=== PATIENT | male | born 1945 | race Caucasian/White ===

== ENCOUNTER 2018-06-23 12:49 | Emergency (ER) | payer MEDICARE ==
[~2018-06-23] VITALS: Ht 162.6 cm; Wt 73.6 kg
[2018-06-23] MEDS ORDERED: BENZ-16 PO (13:38)
[2018-06-23] MEDS ORDERED: benzonatate 100mg capsule PO ONE (13:40)
[2018-06-23 13:57] VITALS: BP 135/79
== END 2018-06-23 13:58 | disposition home or self-care (01) ==
LOC: ER 12:51
DX: J06.9 Acute upper respiratory infection, unspecified (principal); I10 Essential (primary) hypertension; Z88.0 Allergy status to penicillin; Z79.899 Other long term (current) drug therapy
CPT/HCPCS: 99283

== ENCOUNTER 2019-07-18 13:36 | Inpatient (IN) | payer MEDICARE, OTHER ==
[~2019-07-18] VITALS: Ht 162.6 cm; Wt 73.0 kg
[2019-07-18] MEDS ORDERED: aspirin 81mg tab.chew PO ONE (13:40)
[2019-07-18 13:59] LABS: BASOPHILS % (AUTO) 0.3 % (0-1); EOSINOPHILS # (AUTO) 0.1 X10'3 (0-0.9); EOSINOPHILS % (AUTO) 0.5 % (0-6); HEMATOCRIT 46.7 % (42.0-52.0); HEMOGLOBIN 15.7 g/dl (14.0-17.9); LYMPHOCYTES # (AUTO) 1.8 X10'3 (1.1-4.8); MEAN CORPUSCULAR HEMOGLOBIN 34.1 PG (27.0-31.0); MEAN CORPUSCULAR HGB CONC 33.5 g/dL (33.0-36.5); MEAN CORPUSCULAR VOLUME 101.7 FL (78-98); MEAN PLATELET VOLUME 9.2 FL (7.4-10.4); MONOCYTES % (AUTO) 8.1 % (2-12); NEUTROPHILS # (AUTO) 9.7 X10'3 (1.8-7.7); NEUTROPHILS % (AUTO) 77.1 % (42-75); PLATELET COUNT 142 X10'3 (140-440); RED BLOOD COUNT 4.59 X10'6 (4.70-6.10); WHITE BLOOD COUNT 12.6 X10'3 (4.5-11.0)
[2019-07-18 14:13] LABS: ALANINE AMINOTRANSFERASE 39 U/L (12-78); ALBUMIN 3.9 G/DL (3.4-5.0); ALBUMIN/GLOBULIN RATIO 0.9 (1.1-1.5); ALKALINE PHOSPHATASE 74 IU/L (46-116); ANION GAP 6 (8-16); ASPARTATE AMINO TRANSFERASE 40 U/L (10-37); BILIRUBIN,TOTAL 0.6 MG/DL (0.1-1.0); BLOOD UREA NITROGEN 17 MG/DL (7-18); BUN/CREATININE RATIO 9.3 (5.4-32.0); CALCIUM 9.2 MG/DL (8.5-10.1); CHLORIDE 106 MMOL/L (99-107); CREATININE 1.82 MG/DL (0.60-1.10); GLUCOSE 199 MG/DL (70-104); POTASSIUM 4.6 MMOL/L (3.5-5.1); SODIUM 139 MMOL/L (135-145); TOTAL CARBON DIOXIDE 27.1 MMOL/L (24-32); TOTAL PROTEIN 8.3 G/DL (6.4-8.2); eGFR 37 ML/MIN
[2019-07-18 14:19] LABS: MAGNESIUM 2.5 MG/DL (1.5-2.4)
[2019-07-18] MEDS ORDERED: normal saline 1000ML IV soln IVB ONE (14:35)
[2019-07-18] MEDS ORDERED: meclizine 12.5mg tablet PO ONE (15:00)
[2019-07-18] MEDS ORDERED: acetaminophen 325mg tablet PO ONE (15:35)
[2019-07-18] MEDS ORDERED: docusate sod 100mg capsule PO PRN (17:50)
[2019-07-18] MEDS ORDERED: ondansetron/PF 4mg/2ml inj IV PRN (17:50)
[2019-07-18] MEDS ORDERED: potassium Cl 20 mEq SR tablet PO PRN ×2 (17:50)
[2019-07-18] MEDS ORDERED: acetaminophen 325mg tablet PO PRN (17:50)
[2019-07-18] MEDS ORDERED: magnesium 4gm in 100ml NS 100 ML IV PRN (17:50)
[2019-07-18] MEDS ORDERED: mag hydrox/Alum hydrox/simeth 30ml oral suspension PO PRN (17:50)
[2019-07-18] MEDS ORDERED: potassium CL 10mEq/100ml bag 100 ML IV PRN ×2 (17:50)
[2019-07-18] MEDS ORDERED: magnesium Cl slow-release 64mg tablet PO PRN (17:50)
[2019-07-18] MEDS ORDERED: magnesium 2GM in 50ml NS 50 ML IV PRN (17:50)
[2019-07-18] MEDS ORDERED: ATOR10TA70 PO (18:06)
[2019-07-18] MEDS ORDERED: ASPI-611 PO (18:14)
[2019-07-18] MEDS ORDERED: LIDOcaine 5% patch TP ONE (19:20)
[2019-07-18] MEDS ORDERED: LIDOcaine 5% patch TP SCH (19:20)
[2019-07-18] MEDS ORDERED: HYDROcodone/acetaminophen 5mg/325mg tablet PO PRN (19:20)
[2019-07-18] MEDS ORDERED: insulin Lispro (HumaLOG) vial - multi-dose SQ SCH (19:30)
[2019-07-18] MEDS ORDERED: dextrose ORAL solution 15 GM/59 ML bottle PO PRN ×2 (19:30)
[2019-07-18] MEDS ORDERED: dextrose 50%-water 50ml dispensing syringe IV PRN ×2 (19:30)
[2019-07-18] MEDS ORDERED: glucagon, human recombinant 1mg kit SUBCUT PRN (19:30)
[2019-07-18] MEDS ORDERED: MESSAGE TO PHARMACY PO ONE (19:30)
[2019-07-18] MEDS: normal saline 1000ml 1,000 ML IV SCH (19:48)
[2019-07-18] MEDS: K and/or MAG REPLACEMENT MC SCH (20:00)
[2019-07-18] MEDS ORDERED: insulin glargine (Lantus) pen - multi-dose SQ SCH (21:00)
[2019-07-18] MEDS: heparin, porcine 5000 units/ml vial SQ SCH (21:22)
[2019-07-19] VITALS: BP 193/88
[2019-07-19 04:52] LABS: HEMATOCRIT 44.3 % (42.0-52.0); HEMOGLOBIN 14.8 g/dl (14.0-17.9); MEAN CORPUSCULAR HEMOGLOBIN 33.4 PG (27.0-31.0); MEAN CORPUSCULAR HGB CONC 33.3 g/dL (33.0-36.5); MEAN CORPUSCULAR VOLUME 100.2 FL (78-98); MEAN PLATELET VOLUME 9.2 FL (7.4-10.4); PLATELET COUNT 135 X10'3 (140-440); RED BLOOD COUNT 4.42 X10'6 (4.70-6.10); RED CELL DISTRIBUTION WIDTH 13.1 % (11.5-14.5); WHITE BLOOD COUNT 9.1 X10'3 (4.5-11.0)
[2019-07-19 05:03] LABS: ALANINE AMINOTRANSFERASE 32 U/L (12-78); ALBUMIN 3.4 G/DL (3.4-5.0); ALBUMIN/GLOBULIN RATIO 0.9 (1.1-1.5); ALKALINE PHOSPHATASE 60 IU/L (46-116); ANION GAP 8 (8-16); ASPARTATE AMINO TRANSFERASE 35 U/L (10-37); BILIRUBIN,TOTAL 0.7 MG/DL (0.1-1.0); BLOOD UREA NITROGEN 16 MG/DL (7-18); BUN/CREATININE RATIO 12.5 (5.4-32.0); CALCIUM 8.6 MG/DL (8.5-10.1); CHLORIDE 108 MMOL/L (99-107); CREATININE 1.28 MG/DL (0.60-1.10); GLUCOSE 119 MG/DL (70-104); POTASSIUM 4.1 MMOL/L (3.5-5.1); SODIUM 141 MMOL/L (135-145); TOTAL CARBON DIOXIDE 24.6 MMOL/L (24-32); TOTAL PROTEIN 7.3 G/DL (6.4-8.2); eGFR 55 ML/MIN
[2019-07-19 05:07] LABS: MAGNESIUM 2.2 MG/DL (1.5-2.4)
[2019-07-19] MEDS: normal saline 1000ml 1,000 ML IV SCH (05:30)
[2019-07-19 07:00] VITALS: BP 178/76
[2019-07-19 08:00] VITALS: BP_SYST 158; BP_SYST 176; BP_SYST 202; BP_DIAS 88; BP_DIAS 94; BP_DIAS 98
[2019-07-19] MEDS ORDERED: atorvastatin 10mg tablet PO SCH (08:00)
[2019-07-19] MEDS ORDERED: aspirin 81mg tab.chew PO SCH (08:00)
[2019-07-19] MEDS: K and/or MAG REPLACEMENT MC SCH (08:00)
[2019-07-19] MEDS: heparin, porcine 5000 units/ml vial SQ SCH (08:33)
[2019-07-19 11:00] VITALS: BP 161/71
--- NOTE | 2019-07-19 13:09 | NUR ---
patient seen by Dr spence is for possible DC. Informed Dr spence of patients blood pressure 202/98, 176/[address] spence aware. Awaiting orders.Medicated with [place] for rib pain on right side with effect.
[2019-07-19] MEDS ORDERED: HYDR-4383 PO (13:23)
--- NOTE | 2019-07-19 15:22 | NUR ---
patient approved for DC.ALL Dc instructions given to patient . Prescription for [place] e-script per DR Mead to [facility] [address] . patient appears stable for DC. PIVx2 removed intact. patient DC home via private car with friend 1450hrs.
--- NOTE | 2019-07-21 13:16 | NUR ---
Case management DC follow up:LM/VM post DC status, questions, concerns Addendum: 07/21/19 at 1403 by Neeru Swift RN Case Management DC follow up: Case Management DC follow up: Spoke to pt spouse, Jossy, via telephone. s/p: kelley hughes Reports: "doing better, sore" Denies: SOB, resp distress, acute/persistent CP, RAMESH, blurry vision, N/V, emergent general pain, abd tenderness or distention, vertigo, syncope, fever, unexplained bruising, bleeding. Verbalizes understanding of s/s that would warrant 9-11/ER visit for further evaluation. Verbalizes understanding of current/new Rx [place], which pt states has stopped taking, and Tylenol is fine & why prescribed; taking current Rx as ordered, no ase noted r/t polypharmacy. Acknowledges need to follow-up/keep appts w/PCP/Dr Contreras 07/21/19. Questions answered, needs met at [place]. No further questions at this time.
== END 2019-07-19 14:50 | disposition home or self-care (01) | DRG 185 ==
LOC: ER 13:36 → ED HOLD 17:48 → EDBEDREQ 19:24 → SUR 3N 20:26
PROVIDERS: ADMIT Family Medicine; ATTEND Internal Medicine
DX: S22.41XA Multiple fractures of ribs, right side, initial encounter for closed fracture (principal); N19 Unspecified kidney failure; E78.00 Pure hypercholesterolemia, unspecified; R55 Syncope and collapse; I10 Essential (primary) hypertension; D72.823 Leukemoid reaction; E78.5 Hyperlipidemia, unspecified; E86.0 Dehydration; E11.65 Type 2 diabetes mellitus with hyperglycemia; Z80.3 Family history of malignant neoplasm of breast; Z82.0 Family history of epilepsy and other diseases of the nervous system; V87.8XXA Person injured in other specified noncollision transport accidents involving motor vehicle (traffic), initial encounter; Y93.55 Activity, bike riding; Y92.89 Other specified places as the place of occurrence of the external cause; Y99.8 Other external cause status; Z88.0 Allergy status to penicillin; Z79.899 Other long term (current) drug therapy; Z79.82 Long term (current) use of aspirin; Z87.891 Personal history of nicotine dependence
CPT/HCPCS: 36415; 70450; 71045; 73030; 80053; 82948; 83036; 83735; 83880; 84484; 85025; 85027; 87081; 93005; 96360; 97110; 97161; 97530; 99285; G0378; J1644; J1815; J7030; J8597

== ENCOUNTER 2020-02-27 14:42 | Emergency (ER) | payer BC, MEDICARE ==
[~2020-02-27] VITALS: Ht 162.6 cm; Wt 72.7 kg
[~2020-02-27 14:42] MED LIST: ASPI-611 PO; ATOR10TA70 PO; HYDR-4383 PO
[2020-02-27 15:45] LABS: BASOPHILS % (AUTO) 0.1 % (0-1); EOSINOPHILS % (AUTO) 0.2 % (0-6); HEMATOCRIT 41.2 % (42.0-52.0); HEMOGLOBIN 13.9 g/dl (14.0-17.9); LYMPHOCYTES # (AUTO) 1.3 X10'3 (1.1-4.8); LYMPHOCYTES % (AUTO) 18.4 % (21-51); MEAN CORPUSCULAR HEMOGLOBIN 33.5 PG (27.0-31.0); MEAN CORPUSCULAR HGB CONC 33.7 g/dL (33.0-36.5); MEAN CORPUSCULAR VOLUME 99.5 FL (78-98); MEAN PLATELET VOLUME 8.9 FL (7.4-10.4); MONOCYTES # (AUTO) 1.1 X10'3 (0-0.9); MONOCYTES % (AUTO) 15.1 % (2-12); NEUTROPHILS # (AUTO) 4.7 X10'3 (1.8-7.7); NEUTROPHILS % (AUTO) 66.2 % (42-75); PLATELET COUNT 134 X10'3 (140-440); RED BLOOD COUNT 4.14 X10'6 (4.70-6.10); WHITE BLOOD COUNT 7.1 X10'3 (4.5-11.0)
[2020-02-27 15:54] LABS: ALANINE AMINOTRANSFERASE 25 U/L (12-78); ALBUMIN 2.9 G/DL (3.4-5.0); ALBUMIN/GLOBULIN RATIO 0.5 (1.1-1.5); ALKALINE PHOSPHATASE 72 IU/L (46-116); ANION GAP 6 (8-16); ASPARTATE AMINO TRANSFERASE 44 U/L (10-37); BILIRUBIN,TOTAL 0.7 MG/DL (0.1-1.0); BLOOD UREA NITROGEN 27 MG/DL (7-18); BUN/CREATININE RATIO 18.4 (5.4-32.0); CALCIUM 9.3 MG/DL (8.5-10.1); CHLORIDE 105 MMOL/L (99-107); CREATININE 1.47 MG/DL (0.60-1.10); GLUCOSE 144 MG/DL (70-104); POTASSIUM 4.1 MMOL/L (3.5-5.1); SODIUM 138 MMOL/L (135-145); TOTAL CARBON DIOXIDE 26.7 MMOL/L (24-32); TOTAL PROTEIN 8.4 G/DL (6.4-8.2); eGFR 47 ML/MIN
[2020-02-27 16:09] LABS: TOTAL CELLS COUNTED 100
[2020-02-27 16:11] LABS: PLATELET ESTIMATE DECREASED
[2020-02-27 16:24] LABS: COLOR,URINE YELLOW (Yellow); GLUCOSE, URINE NEGATIVE (Neg); KETONES,URINE NEGATIVE (Neg); LEUKOCYTE ESTERASE ,URINE NEGATIVE (Neg); NITRITES, URINE NEGATIVE (Neg); OCCULT BLOOD,URINE TRACE-INTACT (Neg); PH,URINE 5.5 (4.8-8.0); PROTEIN,URINE 100 mg/dl (Neg); UROBILINOGEN,URINE 0.2 E.U/dL (0.2-1.0)
[2020-02-27 16:25] LABS: CLARITY,URINE SLIGHTLY CLOUDY (Clear); UA COLLECTION TYPE CLN CATCH MIDSTREAM
[2020-02-27 16:42] LABS: SQUAMOUS EPITHELIAL CELL,UR FEW /LPF (FEW)
[2020-02-27 16:43] LABS: FINE GRANULAR CAST 0-3 /LPF (NEGATIVE)
[2020-02-27 16:45] LABS: COARSE GRANULAR CAST 0-3 /LPF (NEGATIVE)
[2020-02-27 16:46] LABS: TRANSITIONAL EPI CELLS,URINE FEW /HPF
[2020-02-27 16:48] LABS: BACTERIA,URINE FEW /HPF (Neg); RBC,URINE 0-2 /HPF (0-2); WBC,URINE 0-4 /HPF (0-4)
[2020-02-27 18:09] VITALS: BP 140/85
== END 2020-02-27 18:06 | disposition home or self-care (01) ==
LOC: ER 14:43
DX: R41.82 Altered mental status, unspecified (principal); I10 Essential (primary) hypertension; Z88.0 Allergy status to penicillin; Z79.82 Long term (current) use of aspirin; Z79.899 Other long term (current) drug therapy
CPT/HCPCS: 36415; 70450; 71045; 80053; 81001; 83880; 84484; 85007; 85025; 93005; 99285

== ENCOUNTER 2020-03-08 11:48 | Observation (INO) | payer BC ==
[~2020-03-08] VITALS: Ht 162.6 cm; Wt 61.4 kg
[~2020-03-08 11:48] MED LIST changes: +MECL-226 PO
[2020-03-08] MEDS ORDERED: methylPREDNISolone sod succ 125mg/2ml vial IV ONE (12:05)
[2020-03-08] MEDS: diphenhydrAMINE 50 mg/ml inj IV ONE ×2 (12:06→12:11)
--- NOTE | 2020-03-08 12:09 | NUR ---
shirlene broke and fell on ground, called pharmacy to replace order.
[2020-03-08] MEDS ORDERED: diphenhydrAMINE 50 mg/ml inj IV ONE (12:10)
[2020-03-08 12:32] LABS: BASOPHILS % (AUTO) 0.5 % (0-1); EOSINOPHILS # (AUTO) 0.1 X10'3 (0-0.9); EOSINOPHILS % (AUTO) 1.9 % (0-6); HEMATOCRIT 42.2 % (42.0-52.0); HEMOGLOBIN 14.1 g/dl (14.0-17.9); LYMPHOCYTES # (AUTO) 1.8 X10'3 (1.1-4.8); LYMPHOCYTES % (AUTO) 25.4 % (21-51); MEAN CORPUSCULAR HGB CONC 33.5 g/dL (33.0-36.5); MEAN CORPUSCULAR VOLUME 98.6 FL (78-98); MEAN PLATELET VOLUME 8.4 FL (7.4-10.4); MONOCYTES # (AUTO) 0.8 X10'3 (0-0.9); MONOCYTES % (AUTO) 10.5 % (2-12); NEUTROPHILS # (AUTO) 4.4 X10'3 (1.8-7.7); NEUTROPHILS % (AUTO) 61.7 % (42-75); PLATELET COUNT 198 X10'3 (140-440); RED BLOOD COUNT 4.28 X10'6 (4.70-6.10); RED CELL DISTRIBUTION WIDTH 13.1 % (11.5-14.5); WHITE BLOOD COUNT 7.2 X10'3 (4.5-11.0)
[2020-03-08 12:47] LABS: PARTIAL THROMBOPLASTIN TIME 24 SECONDS (22-32)
[2020-03-08 12:51] LABS: ALANINE AMINOTRANSFERASE 38 U/L (12-78); ALBUMIN 2.7 G/DL (3.4-5.0); ALBUMIN/GLOBULIN RATIO 0.5 (1.1-1.5); ALKALINE PHOSPHATASE 90 IU/L (46-116); ANION GAP 4 (8-16); ASPARTATE AMINO TRANSFERASE 49 U/L (10-37); BILIRUBIN,TOTAL 0.4 MG/DL (0.1-1.0); BLOOD UREA NITROGEN 15 MG/DL (7-18); BUN/CREATININE RATIO 13.8 (5.4-32.0); CHLORIDE 108 MMOL/L (99-107); CREATININE 1.09 MG/DL (0.60-1.10); GLUCOSE 98 MG/DL (70-104); POTASSIUM 3.8 MMOL/L (3.5-5.1); SODIUM 144 MMOL/L (135-145); TOTAL CARBON DIOXIDE 31.7 MMOL/L (24-32); TOTAL PROTEIN 8.2 G/DL (6.4-8.2); eGFR 66 ML/MIN
[2020-03-08 12:55] LABS: MAGNESIUM 2.1 MG/DL (1.5-2.4)
[2020-03-08] MEDS ORDERED: potassium Cl 40MEQ/1/2NS 520ml 520 ML IV PRN ×2 (13:35)
[2020-03-08] MEDS ORDERED: HYDROmorphone inj. 0.5 MG/0.5 ML DISP.SYRIN IV PRN (13:35)
[2020-03-08] MEDS ORDERED: magnesium 2GM in 50ml NS 50 ML IV PRN (13:35)
[2020-03-08] MEDS ORDERED: ondansetron/PF 4mg/2ml inj IV PRN (13:35)
[2020-03-08] MEDS ORDERED: acetaminophen 325mg tablet PO PRN ×2 (13:35)
[2020-03-08] MEDS ORDERED: HYDROcodone/acetaminophen 10/325mg tab PO PRN (13:35)
[2020-03-08] MEDS ORDERED: bisacodyl 10mg suppository rectal RC PRN (13:35)
[2020-03-08] MEDS ORDERED: mag hydrox/Alum hydrox/simeth 30ml oral suspension PO PRN (13:35)
[2020-03-08] MEDS ORDERED: HYDROcodone/acetaminophen 5mg/325mg tablet PO PRN (13:35)
[2020-03-08] MEDS ORDERED: magnesium hydroxide 30ml (MOM) UD suspension PO PRN (13:35)
[2020-03-08] MEDS ORDERED: potassium Cl 20 mEq SR tablet PO PRN ×2 (13:35)
[2020-03-08] MEDS ORDERED: magnesium Cl slow-release 64mg tablet PO PRN (13:35)
[2020-03-08] MEDS ORDERED: magnesium 4gm in 100ml NS 100 ML IV PRN (13:35)
[2020-03-08] MEDS ORDERED: CLOP75TA34 PO (13:38)
[2020-03-08] MEDS ORDERED: ALBU6.7H9 INH (13:38)
[2020-03-08] MEDS ORDERED: FERR325T7 PO (13:38)
[2020-03-08] MEDS ORDERED: LISI-600 PO (13:38)
[2020-03-08] MEDS ORDERED: diphenhydrAMINE 25mg capsule PO SCH (14:00)
[2020-03-08] MEDS ORDERED: methylPREDNISolone sod succ 125mg/2ml vial IV SCH (14:00)
--- NOTE | 2020-03-08 14:58 | NUR ---
Spoke to Dr. Santillan regarding timing of both Benadryl and Solumedrol. Per MD, timing to be changed to start 6 hours after initial dose at 1200.
[2020-03-08] MEDS: normal saline 1000ml 1,000 ML IV SCH (15:11)
[2020-03-08] MEDS ORDERED: albuterol 2.5 MG/3 ML nebule NEB PRN (16:35)
[2020-03-08 16:41] LABS: CLARITY,URINE CLEAR (Clear); COLOR,URINE YELLOW (Yellow); GLUCOSE, URINE NEGATIVE (Neg); KETONES,URINE NEGATIVE (Neg); LEUKOCYTE ESTERASE ,URINE NEGATIVE (Neg); NITRITES, URINE NEGATIVE (Neg); OCCULT BLOOD,URINE NEGATIVE (Neg); PH,URINE 5.5 (4.8-8.0); PROTEIN,URINE TRACE mg/dl (Neg); UROBILINOGEN,URINE 0.2 E.U/dL (0.2-1.0)
[2020-03-08 16:46] LABS: UA COLLECTION TYPE URINAL
[2020-03-08 16:48] LABS: MUCUS STRANDS MODERATE /LPF (Neg)
[2020-03-08 16:49] LABS: SQUAMOUS EPITHELIAL CELL,UR FEW /LPF (FEW)
[2020-03-08 16:50] LABS: BACTERIA,URINE NONE SEEN /HPF (Neg); RBC,URINE 0-2 /HPF (0-2); WBC,URINE 0-4 /HPF (0-4)
--- NOTE | 2020-03-08 18:44 | NUR ---
Patient in room ED 3. I have received report from JOSE CRUZ [facility] and had the opportunity to ask questions and assume patient care.
[2020-03-08 18:45] VITALS: BP 185/93
[2020-03-08] MEDS ORDERED: GADOTERATE MEGLUMINE 7.5 MMOL/15 ML VIAL IV ONE (19:54)
[2020-03-08] MEDS ORDERED: enoxaparin 40mg/0.4ml syringe SQ SCH (20:00)
[2020-03-08] MEDS: K and/or MAG REPLACEMENT MC SCH (20:00)
[2020-03-08] MEDS: diphenhydrAMINE 25mg capsule PO SCH (20:38)
[2020-03-08] MEDS: methylPREDNISolone sod succ 125mg/2ml vial IV SCH (20:38)
[2020-03-08] MEDS: famotidine 20mg tablet PO SCH (20:39)
[2020-03-08] MEDS: carVEDilol 3.125mg tablet PO SCH (20:39)
[2020-03-08] MEDS ORDERED: temazepam 15mg capsule PO PRN (21:00)
[2020-03-08 22:00] VITALS: BP 158/82
[2020-03-09] MEDS: diphenhydrAMINE 25mg capsule PO SCH ×2 (01:19→07:20)
[2020-03-09] MEDS: methylPREDNISolone sod succ 125mg/2ml vial IV SCH ×2 (01:19→07:20)
[2020-03-09 02:00] VITALS: BP 144/85
[2020-03-09] MEDS: normal saline 1000ml 1,000 ML IV SCH (02:29)
[2020-03-09 06:30] VITALS: BP 163/97
--- NOTE | 2020-03-09 06:30 | NUR ---
Patient in room [facility] 3018. I have received report from KAILEE BILLINGSLEY and had the opportunity to ask questions and assume patient care. PT SLEEPING. NO DISTRESS. CALL LIGHT IN REACH. Addendum: 03/09/20 at 0718 by Qing Canales RN Amended: Links added. Addendum: 03/09/20 at 0725 by Qing Canales RN WRONG PT
--- NOTE | 2020-03-09 06:45 | NUR ---
Patient in room [facility] 3018. I have received report from JOSE CRUZ [facility] and had the opportunity to ask questions and assume patient care. Pt sleeping comfortably at change of shift.
--- NOTE | 2020-03-09 06:50 | NUR ---
Problems reprioritized. Patient report given, questions answered & plan of care reviewed with Faith Rivas RN.
[2020-03-09 07:00] VITALS: BP 163/97
[2020-03-09 07:04] LABS: HEMOGLOBIN 13.5 g/dl (14.0-17.9); MEAN CORPUSCULAR HEMOGLOBIN 33.1 PG (27.0-31.0); MEAN CORPUSCULAR HGB CONC 33.8 g/dL (33.0-36.5); MEAN CORPUSCULAR VOLUME 97.8 FL (78-98); PLATELET COUNT 212 X10'3 (140-440); RED BLOOD COUNT 4.09 X10'6 (4.70-6.10); RED CELL DISTRIBUTION WIDTH 12.7 % (11.5-14.5)
[2020-03-09 07:14] LABS: ALBUMIN 2.5 G/DL (3.4-5.0); ANION GAP 8 (8-16); BLOOD UREA NITROGEN 19 MG/DL (7-18); BUN/CREATININE RATIO 17.9 (5.4-32.0); CALCIUM 9.6 MG/DL (8.5-10.1); CHLORIDE 107 MMOL/L (99-107); CREATININE 1.06 MG/DL (0.60-1.10); GLUCOSE 167 MG/DL (70-104); MAGNESIUM 2.2 MG/DL (1.5-2.4); SODIUM 142 MMOL/L (135-145); TOTAL CARBON DIOXIDE 26.6 MMOL/L (24-32); eGFR 68 ML/MIN
[2020-03-09 07:17] LABS: POTASSIUM 4.5 MMOL/L (3.5-5.1)
[2020-03-09] MEDS: famotidine 20mg tablet PO SCH (07:20)
[2020-03-09] MEDS: carVEDilol 3.125mg tablet PO SCH (07:21)
[2020-03-09] MEDS ORDERED: aspirin 81mg tablet.DR PO SCH (08:00)
[2020-03-09] MEDS ORDERED: clopidogrel 75mg tablet PO SCH (08:00)
[2020-03-09] MEDS: K and/or MAG REPLACEMENT MC SCH (08:00)
[2020-03-09] MEDS ORDERED: ferrous sulfate 325mg tablet PO SCH (08:00)
[2020-03-09] MEDS ORDERED: atorvastatin 10mg tablet PO SCH (08:00)
[2020-03-09] MEDS ORDERED: COR3.125T PO (10:18)
[2020-03-09] MEDS ORDERED: PRED10TA23 PO (10:18)
[2020-03-09] MEDS ORDERED: FAMO20TA8 PO (10:18)
[2020-03-09] MEDS ORDERED: LORA5TAB9 PO (10:18)
--- NOTE | 2020-03-09 11:45 | NUR ---
Pt stable for discharge per MD orders. All instructions were give, questions answered appropriately. All belongings were collected and sent with pt. PIV discontinued, cannula intact. Tele discontinued, color television console monitor notified, tele monitor returned to color television console monitor. Informed pt to follow up with primary care provider within one week. Called in new Rx to [facility] [address], pt aware. Wheeled pt to lobby and assisted into personal vehicle with .
== END 2020-03-09 11:50 | disposition home or self-care (01) ==
LOC: ER 11:49 → ED HOLD 13:31 → PCU 3S 18:40
PROVIDERS: ADMIT Family Medicine; ATTEND Family Medicine
DX: T78.3XXA Angioneurotic edema, initial encounter (principal); R41.82 Altered mental status, unspecified; G93.41 Metabolic encephalopathy; I25.10 Atherosclerotic heart disease of native coronary artery without angina pectoris; I12.9 Hypertensive chronic kidney disease with stage 1 through stage 4 chronic kidney disease, or unspecified chronic kidney disease; N18.9 Chronic kidney disease, unspecified; E78.5 Hyperlipidemia, unspecified; I73.9 Peripheral vascular disease, unspecified; E78.00 Pure hypercholesterolemia, unspecified; J45.909 Unspecified asthma, uncomplicated; Z87.891 Personal history of nicotine dependence; Z95.5 Presence of coronary angioplasty implant and graft; Z95.820 Peripheral vascular angioplasty status with implants and grafts; Z79.82 Long term (current) use of aspirin; Z79.899 Other long term (current) drug therapy; Z88.0 Allergy status to penicillin; Z88.8 Allergy status to other drugs, medicaments and biological substances; X58.XXXA Exposure to other specified factors, initial encounter; Y93.89 Activity, other specified; Y92.89 Other specified places as the place of occurrence of the external cause
CPT/HCPCS: 36415; 70450; 70544; 70553; 71045; 80048; 80053; 81001; 83735; 83880; 84443; 84484; 85025; 85027; 85610; 85730; 87081; 92508; 92616; 93005; 93880; 96361; 96372; 96374; 96375; 96376; 97116; 97161; 97530; 99285; A9575; G0378; J1200; J2930; J7030; Q0163; J1650

== ENCOUNTER 2020-04-01 12:24 | Observation (INO) | payer BC ==
[~2020-04-01] VITALS: Ht 167.6 cm; Wt 73.6 kg
[~2020-04-01 12:24] MED LIST changes: +ALBU6.7H9 INH; +CLOP75TA34 PO; +COR3.125T PO; +FAMO20TA8 PO; +FERR325T7 PO; -HYDR-4383 PO; +LORA5TAB9 PO; -MECL-226 PO
[2020-04-01 13:04] LABS: BASOPHILS # (AUTO) 0.1 X10'3 (0-0.2); EOSINOPHILS # (AUTO) 0.3 X10'3 (0-0.9); HEMOGLOBIN 14.4 g/dl (14.0-17.9); MEAN CORPUSCULAR VOLUME 99.1 FL (78-98); NEUTROPHILS # (AUTO) 2.4 X10'3 (1.8-7.7)
[2020-04-01 13:05] LABS: BASOPHILS % (AUTO) 1.6 % (0-1); HEMATOCRIT 42.6 % (42.0-52.0); LYMPHOCYTES % (AUTO) 37.4 % (21-51); MEAN CORPUSCULAR HEMOGLOBIN 33.5 PG (27.0-31.0); MEAN CORPUSCULAR HGB CONC 33.8 g/dL (33.0-36.5); MONOCYTES # (AUTO) 0.6 X10'3 (0-0.9); MONOCYTES % (AUTO) 10.8 % (2-12); NEUTROPHILS % (AUTO) 45.2 % (42-75); PLATELET COUNT 134 X10'3 (140-440); RED BLOOD COUNT 4.29 X10'6 (4.70-6.10); RED CELL DISTRIBUTION WIDTH 14.7 % (11.5-14.5); WHITE BLOOD COUNT 5.3 X10'3 (4.5-11.0)
[2020-04-01 13:16] LABS: ANION GAP 8 (8-16); BLOOD UREA NITROGEN 17 MG/DL (7-18); CHLORIDE 106 MMOL/L (99-107); CREATININE 1.34 MG/DL (0.60-1.10); GLUCOSE 98 MG/DL (70-104); POTASSIUM 4.6 MMOL/L (3.5-5.1); SODIUM 141 MMOL/L (135-145); TOTAL CARBON DIOXIDE 27.5 MMOL/L (24-32)
[2020-04-01 13:17] LABS: ALANINE AMINOTRANSFERASE 49 U/L (12-78); ALBUMIN 3.5 G/DL (3.4-5.0); ALBUMIN/GLOBULIN RATIO 0.7 (1.1-1.5); ALKALINE PHOSPHATASE 78 IU/L (46-116); ASPARTATE AMINO TRANSFERASE 44 U/L (10-37); BILIRUBIN,TOTAL 0.5 MG/DL (0.1-1.0); BUN/CREATININE RATIO 12.7 (5.4-32.0); CALCIUM 9.1 MG/DL (8.5-10.1); TOTAL PROTEIN 8.5 G/DL (6.4-8.2); eGFR 52 ML/MIN
[2020-04-01] MEDS ORDERED: mag hydrox/Alum hydrox/simeth 30ml oral suspension PO PRN (14:20)
[2020-04-01] MEDS ORDERED: magnesium hydroxide 30ml (MOM) UD suspension PO PRN (14:20)
[2020-04-01] MEDS ORDERED: ondansetron/PF 4mg/2ml inj IV PRN (14:20)
[2020-04-01] MEDS ORDERED: acetaminophen 325mg tablet PO PRN ×2 (14:20)
[2020-04-01] MEDS ORDERED: LISI-600 PO (14:37)
[2020-04-01] MEDS ORDERED: CARV3.122 PO (14:37)
--- NOTE | 2020-04-01 15:30 | NUR ---
PER [address] FOR PT TO EAT ATE SANDWHICH, 2 YOGURTS, 240 ML WHOLE MILK, 240 APPLE JUICE
[2020-04-01] MEDS: normal saline 1000ml 1,000 ML IV SCH ×3 (16:57→23:04)
--- NOTE | 2020-04-01 17:09 | NUR ---
ON THE PHONE SPOKE TO "NATHANAEL CHERRY" WHO STATES SHE IS A TABBER FOR PATIENT'S GUILLERMO. NATHANAEL DEMANDED TO TALK TO A DOCTOR, THEN THE CHARGE NURSE, THEN THE NURSING MOUNTING MACHINE OPERATOR. SHE WANTS THE PATIENT BYRON IMMEDIATELY TRASNFERRED TO [facility] BECAUSE "HE HAD 3 SEIZURES TODAY AND [facility] DOES NOT KNOW HOW TO TAKE CARE OF SEIZURES AND [facility] HAS A NICE NEURO UNIT" "AND HIS HEART DOCTOR IS AT [facility]" "I HAVE BEEN TRANSFERED TO [facility] AND KNOW LOTS OF [place] WHO HAVE BEEN TRANSFERED , SO I KNOW YOU CAN DO IT" WHEN I DISCUSSED THE FACT THAT PEOPLE HAVE TO HAVE A CLINICAL/MEDICAL REASON TO BE TRANSFERRED, SHE RAISED HER VOICE AT ME. I DISCUSSED THE FACT THAT ANY PERSON CAN SIGN OUT AMA AND GO OVER TO [facility]. I TRANSFERRED THE CALL TO MY SENIOR FORMULATION SCIENTIST LUANN.
[2020-04-01 17:16] LABS: CLARITY,URINE CLEAR (Clear); COLOR,URINE YELLOW (Yellow); GLUCOSE, URINE NEGATIVE (Neg); KETONES,URINE NEGATIVE (Neg); LEUKOCYTE ESTERASE ,URINE NEGATIVE (Neg); NITRITES, URINE NEGATIVE (Neg); OCCULT BLOOD,URINE NEGATIVE (Neg); PROTEIN,URINE NEGATIVE (Neg); UROBILINOGEN,URINE 0.2 E.U/dL (0.2-1.0)
[2020-04-01 17:19] LABS: UA COLLECTION TYPE CLN CATCH MIDSTREAM
--- NOTE | 2020-04-01 17:41 | NUR ---
dialed phone for patient
--- NOTE | 2020-04-01 18:24 | NUR ---
Patient in room ED 6. I have received report from Palma BILLINGSLEY and had the opportunity to ask questions and assume patient care.
--- NOTE | 2020-04-01 18:28 | NUR ---
PHARMACY IS REQUESTING A MEDICATION REVIEW AND I AM UNABLE TO DO IT
--- NOTE | 2020-04-01 18:56 | NUR ---
Patient in room ED 6. I have received report from Tamanna BILLINGSLEY and had the opportunity to ask questions and assume patient care.
--- NOTE | 2020-04-01 18:58 | NUR ---
ATTEMPTING TO GIVE REPORT TO [facility]
[2020-04-01 19:00] VITALS: BP 120/77
[2020-04-01 20:00] VITALS: BP_SYST 130; BP_SYST 152; BP_SYST 167; BP_DIAS 76; BP_DIAS 93; BP_DIAS 97
[2020-04-01 22:00] VITALS: BP 194/93
[2020-04-01] MEDS ORDERED: metoprolol tartrate 1mg/ml inj IV PRN (22:20)
[2020-04-01] MEDS ORDERED: nitroGLYCERIN 0.4mg SUBLingual tab SL PRN (22:20)
[2020-04-01] MEDS ORDERED: regadenoson 0.4mg/5ml syringe IV PRN (22:20)
[2020-04-01] MEDS ORDERED: aminophylline 250mg/10ml inj. IV PRN (22:20)
--- NOTE | 2020-04-01 22:55 | NUR ---
PAGER ID: [phone] MESSAGE: Navarro Fleming- BP 194/93 right arm, 187/87 left- no HTN meds, please advise Rekha MEANS [phone] thx
--- NOTE | 2020-04-01 23:15 | NUR ---
PAGER ID: [phone] MESSAGE: Aleena-Navarro Garcia-Please call [facility] [phone], PT BP 193. THX
[2020-04-01] MEDS ORDERED: hydrALAZINE 20mg/ml inj. IV PRN (23:25)
[2020-04-02] VITALS (16 sets, daily range): BP systolic 108–209; BP diastolic 69–167
[2020-04-02 01:27] LABS: ALBUMIN 3.3 G/DL (3.4-5.0); ANION GAP 7 (8-16); BLOOD UREA NITROGEN 19 MG/DL (7-18); BUN/CREATININE RATIO 16.8 (5.4-32.0); CHLORIDE 106 MMOL/L (99-107); CREATININE 1.13 MG/DL (0.60-1.10); GLUCOSE 149 MG/DL (70-104); POTASSIUM 3.9 MMOL/L (3.5-5.1); SODIUM 139 MMOL/L (135-145); eGFR 63 ML/MIN
[2020-04-02 01:40] LABS: BASOPHILS % (AUTO) 0.6 % (0-1); EOSINOPHILS # (AUTO) 0.3 X10'3 (0-0.9); HEMATOCRIT 41.2 % (42.0-52.0); LYMPHOCYTES # (AUTO) 2.7 X10'3 (1.1-4.8); LYMPHOCYTES % (AUTO) 42.3 % (21-51); MEAN CORPUSCULAR HEMOGLOBIN 33.2 PG (27.0-31.0); MEAN CORPUSCULAR HGB CONC 34.1 g/dL (33.0-36.5); MEAN CORPUSCULAR VOLUME 97.4 FL (78-98); MEAN PLATELET VOLUME 9.3 FL (7.4-10.4); MONOCYTES # (AUTO) 0.5 X10'3 (0-0.9); MONOCYTES % (AUTO) 8.5 % (2-12); NEUTROPHILS # (AUTO) 2.8 X10'3 (1.8-7.7); NEUTROPHILS % (AUTO) 44.6 % (42-75); PLATELET COUNT 129 X10'3 (140-440); RED BLOOD COUNT 4.23 X10'6 (4.70-6.10); RED CELL DISTRIBUTION WIDTH 14.1 % (11.5-14.5); WHITE BLOOD COUNT 6.4 X10'3 (4.5-11.0)
[2020-04-02] MEDS: normal saline 1000ml 1,000 ML IV SCH (05:42)
--- NOTE | 2020-04-02 06:07 | NUR ---
Problems reprioritized. Patient report given, questions answered & plan of care reviewed with Talia BILLINGSLEY.
--- NOTE | 2020-04-02 06:20 | NUR ---
Patient in room MED 310. I have received report from marta brantley and had the opportunity to ask questions and assume patient care.
[2020-04-02] MEDS ORDERED: lisinopril 20mg tablet PO SCH (11:40)
[2020-04-02] MEDS ORDERED: LEVO500T89 PO (14:10)
--- NOTE | 2020-04-02 15:37 | NUR ---
clarified discharge orders with Dr. hernandez,communicated positive orthostatic v/s ,called aruna,left msg regarding discharge orders
--- NOTE | 2020-04-02 17:00 | NUR ---
reviewed all discharge instructions,including f/u appts with PMD and machine cutter,Prescription confirm at [facility] in [place],SL dc'd [facility],site [place],pt dc'd via W/C with all belongings
[2020-04-02] MEDS ORDERED: carVEDilol 3.125mg tablet PO SCH (20:00)
--- NOTE | 2020-04-04 15:07 | NUR ---
CASE MANAGEMENT DISCHARGE FOLLOW UP: T/c to pt, no answer, left message requesting call back. Addendum: 04/05/20 at 1021 by Jessica Streeter RN 04/05@1013 T/c to pt, spoke with his , Jossy. She states that pt is doing "lots better," denies passing out. States avoiding rigorous activity. Saw PCP this AM and dehydrogenation operator head yesterday, per dehydrogenation operator head heart looks good. She wants to know why pt is taking Levofloxacin, advised that this nurse is unsure, advised to contact PCP and ask if they want him to continue taking ABX, she states that she will. Pt adhering to MD discharge instructions. Only frustration Jossy expresses is that "they didn't find anything" in regards to pt's condition, not sure why he was passing out. States no further questions/concerns, verbalizes understanding of s/sx requiring reevaluation, emergent or otherwise.
== END 2020-04-02 16:00 | disposition home or self-care (01) ==
LOC: ER 12:25 → ED HOLD 14:17 → EDBEDREQ 18:09 → MED 3N 19:00
PROVIDERS: ADMIT Internal Medicine; ATTEND Internal Medicine
DX: R55 Syncope and collapse (principal); I20.9 Angina pectoris, unspecified; R09.02 Hypoxemia; I10 Essential (primary) hypertension; E78.5 Hyperlipidemia, unspecified; E78.00 Pure hypercholesterolemia, unspecified; Z95.5 Presence of coronary angioplasty implant and graft; Z79.899 Other long term (current) drug therapy; Z88.0 Allergy status to penicillin; Z88.8 Allergy status to other drugs, medicaments and biological substances
CPT/HCPCS: 36415; 71045; 78452; 80048; 80053; 81003; 83880; 84484; 85025; 85379; 87081; 93005; 93017; 96361; 96374; 96375; 99285; A9500; G0378; J0280; J0360; J2785; J7030

== ENCOUNTER 2020-05-01 09:49 | Outpatient (CLI) | payer BC, MEDICAID ==
[~2020-05-01 09:49] MED LIST changes: +CARV3.122 PO; -COR3.125T PO; -FAMO20TA8 PO; +LISI20TA28 PO; -LORA5TAB9 PO
== END 2020-05-01 23:59 | disposition home or self-care (01) ==
LOC: RAD 09:49
DX: R56.9 Unspecified convulsions (principal)
CPT/HCPCS: 95816

== ENCOUNTER 2021-06-08 13:50 | Emergency (ER) | payer MEDICARE, MEDICAID ==
[~2021-06-08] VITALS: Ht 162.6 cm; Wt 72.7 kg
[2021-06-08 14:36] LABS: BASOPHILS % (AUTO) 0.3 % (0-1); EOSINOPHILS # (AUTO) 0.1 X10'3 (0-0.9); EOSINOPHILS % (AUTO) 1.4 % (0-6); HEMATOCRIT 47.2 % (42.0-52.0); HEMOGLOBIN 16.3 g/dl (14.0-17.9); LYMPHOCYTES # (AUTO) 2.6 X10'3 (1.1-4.8); MEAN CORPUSCULAR HEMOGLOBIN 33.5 PG (27.0-31.0); MEAN CORPUSCULAR HGB CONC 34.4 g/dL (33.0-36.5); MEAN CORPUSCULAR VOLUME 97.4 FL (78-98); MONOCYTES # (AUTO) 0.6 X10'3 (0-0.9); MONOCYTES % (AUTO) 7.3 % (2-12); NEUTROPHILS # (AUTO) 5.5 X10'3 (1.8-7.7); PLATELET COUNT 163 X10'3 (140-440); RED BLOOD COUNT 4.85 X10'6 (4.70-6.10); RED CELL DISTRIBUTION WIDTH 12.8 % (11.5-14.5); WHITE BLOOD COUNT 8.8 X10'3 (4.5-11.0)
[2021-06-08 15:17] LABS: ALANINE AMINOTRANSFERASE 26 U/L (12-78); ALBUMIN 3.8 G/DL (3.4-5.0); ALBUMIN/GLOBULIN RATIO 0.8 (1.1-1.5); ALKALINE PHOSPHATASE 79 IU/L (46-116); ANION GAP 10 (8-16); ASPARTATE AMINO TRANSFERASE 29 U/L (10-37); BILIRUBIN,TOTAL 0.5 MG/DL (0.1-1.0); BLOOD UREA NITROGEN 21 MG/DL (7-18); BUN/CREATININE RATIO 13.5 (5.4-32.0); CALCIUM 9.3 MG/DL (8.5-10.1); CHLORIDE 101 MMOL/L (99-107); CREATININE 1.55 MG/DL (0.60-1.10); GLUCOSE 101 MG/DL (70-104); SODIUM 138 MMOL/L (135-145); TOTAL CARBON DIOXIDE 27.5 MMOL/L (24-32); TOTAL PROTEIN 8.7 G/DL (6.4-8.2); eGFR 44 ML/MIN
[2021-06-08 15:19] LABS: POTASSIUM 4.6 MMOL/L (3.5-5.1)
[2021-06-08 15:24] LABS: CLARITY,URINE CLEAR (Clear); COLOR,URINE YELLOW (Yellow); GLUCOSE, URINE NEGATIVE (Neg); KETONES,URINE TRACE mg/dl (Neg); LEUKOCYTE ESTERASE ,URINE NEGATIVE (Neg); NITRITES, URINE NEGATIVE (Neg); OCCULT BLOOD,URINE NEGATIVE (Neg); PH,URINE 5.5 (4.8-8.0); PROTEIN,URINE 100 mg/dl (Neg); UROBILINOGEN,URINE 0.2 E.U/dL (0.2-1.0)
[2021-06-08 15:29] LABS: UA COLLECTION TYPE NON-SPECIFIED
[2021-06-08 15:30] LABS: BACTERIA,URINE NONE SEEN /HPF (Neg); HYALINE CASTS 0-3 /LPF (NEGATIVE); MUCUS STRANDS FEW /LPF (Neg); RBC,URINE NONE SEEN /HPF (0-2); SQUAMOUS EPITHELIAL CELL,UR FEW /LPF (FEW); WBC,URINE 0-4 /HPF (0-4)
[2021-06-08 15:31] LABS: APTT 21 SECONDS (22-32)
[2021-06-08 18:34] VITALS: BP 142/86
== END 2021-06-08 18:35 | disposition home or self-care (01) ==
LOC: ER 13:52
DX: R42 Dizziness and giddiness (principal); R07.89 Other chest pain; E78.00 Pure hypercholesterolemia, unspecified; I10 Essential (primary) hypertension; Z86.79 Personal history of other diseases of the circulatory system; Z72.89 Other problems related to lifestyle; Z88.0 Allergy status to penicillin; Z88.8 Allergy status to other drugs, medicaments and biological substances; Z79.82 Long term (current) use of aspirin; Z79.899 Other long term (current) drug therapy
CPT/HCPCS: 36415; 70450; 71045; 80053; 81001; 82948; 84443; 84484; 85025; 85610; 85730; 93005; 99285